=== PATIENT | male | born 1985 | race Hispanic/Latino ===

== ENCOUNTER 2021-08-22 12:04 | Emergency (ER) | payer OTHER | END 2021-08-22 13:55 | disposition home or self-care (01) | LOC: EDBD 12:04 → ERS 12:04 | DX: M25.511 Pain in right shoulder (principal); M25.512 Pain in left shoulder; V43.52XA Car driver injured in collision with other type car in traffic accident, initial encounter; W22.11XA Striking against or struck by driver side automobile airbag, initial encounter | CPT/HCPCS: 71045 ==